=== PATIENT | female | born 1960 | race Two or more races ===

== ENCOUNTER 2017-06-07 08:50 | Day surgery (SDC) | payer OTHER ==
[2017-06-07] MEDS ORDERED: CIPRO500 MG PO (11:36)
== END 2017-06-07 17:15 | disposition home or self-care (01) ==
LOC: CIR.AMB 08:50
DX: N84.0 Polyp of corpus uteri (principal); N72 Inflammatory disease of cervix uteri

== ENCOUNTER 2024-06-05 10:53 | Day surgery (SDC) | payer OTHER ==
[2024-05-30 11:21] LABS: HEMATOCRIT 37.1 % (36.0-45.00); HEMOGLOBIN 12.4 g/dL (12.0-15.00); MEAN CELL VOLUME 85.4 fL (80.00-100.00); MEAN CORPUSCULAR HEMOGLOBIN 28.6 pg (27.00-32.0); MEAN CORPUSCULAR HGB CONC 33.5 g/dl (32.0-36.0); PLATELET COUNT 230 K/uL (150-450); RED BLOOD COUNT 4.34 M/uL (4.00-6.00); RED CELL DISTRIBUTION WIDTH 14.5 % (11.5-14.5)
[2024-05-30 11:50] LABS: PH,URINE 7.5 (5.0-8.0); URINE APPEARANCE Clear; URINE BILIRRUBIN Negative (NEGATIVE); URINE BLOOD Negative; URINE COLOR Yellow; URINE GLUCOSE Negative (NEGATIVE); URINE KETONE Negative (NEGATIVE); URINE LEUKOCYTE Negative; URINE NITRATE Negative; URINE PROTEIN Negative (NEGATIVE); URINE UROBILINOGEN 0.2 E.U./dl
[2024-05-30 11:51] LABS: URINE BACTERIA 19.5 uL (0.0-1933); URINE EPITHELIAL CELLS 4.8 uL (0.0-38.8); URINE RBC 4.7 uL (0.0-20.8); URINE WBC 5.2 uL (0.0-23.2)
[2024-05-30 12:23] LABS: INR 0.98; PARTIAL THROMBOPLASTIN TIME 28.7 SECONDS (22.0-34.0); PROTHROMBIN TIME 10.7 SECONDS (9.0-11.5)
[2024-05-30 12:34] LABS: ALBUMIN 4.1 gm/dL (3.4-5.0); BILIRUBIN TOTAL 0.38 mg/dL (0.3-1.2); CALCIUM 9.7 mg/dL (8.5-10.1); CREATININE SERUM 0.83 mg/dL (0.55-1.02); GFR 69.66; GLOBULINA 3.2 G/DL (2.4-3.5); POTASSIUM 3.91 mEq/L (3.5-5.1); TOTAL PROTEIN 7.3 gm/dL (6.4-8.2)
[~2024-06-05 10:53] MED LIST: CIPRO500 MG PO; METRONIDAZOLE/SODIUM CHLORIDE 500 MG/100 ML PIGGYBACK IV SCH
[2024-06-05] MEDS ORDERED: POVIDONE-IODINE 118 ML BOTT TOP ONE (14:08)
[2024-06-05] MEDS ORDERED: METRONIDAZOLE/SODIUM CHLORIDE 500 MG/100 ML PIGGYBACK IV ONE (14:08)
== END 2024-06-05 20:30 | disposition home or self-care (01) ==
LOC: CIR.AMB 10:53
PROVIDERS: ATTEND Obstetrics & Gynecology
DX: D26.0 Other benign neoplasm of cervix uteri (principal); R93.5 Abnormal findings on diagnostic imaging of other abdominal regions, including retroperitoneum